=== PATIENT | female | born 1985 | race American Indian/Alaskan Native ===

== ENCOUNTER 2018-11-16 13:10 | Emergency (ER) | payer OTHER ==
[2018-11-16 13:33] VITALS: BP 124/77
--- NOTE | 2018-11-16 13:38 | Event Note ---
ED Screening Note Date of service: 11/16/18 Time: 13:37 ED Screening Note: 33 y/o female comes in for headache that is not getting any better. This initial assessment/diagnostic orders/clinical plan/treatment(s) is/are subject to change based on patients health status, clinical progression and re- assessment by fellow clinical providers in the ED. Further treatment and workup at subsequent clinical providers discretion. Patient/guardian urged not to elope from the ED as their condition may be serious if not clinically assessed and managed. Initial orders include:
--- NOTE | 2018-11-16 14:33 | Emergency Department Report ---
ED Headache HPI - General Chief Complaint: Neck Pain/Injury Stated Complaint: HEAD/NECK/EAR RT PAIN Time Seen by Provider: 11/16/18 14:03 - History of Present Illness Initial Comments: Patient is a 33-year-old female who is complaining of right- sided headache for approximately 2 weeks. He says the headache is off and on. Patient has seen her primary care physician and went to another emergency Department was told that likely tension. Patient states it starts in her yazidism and there is some tight sensation in the right posterior neck as well. 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 Patient states is mild photophobia but she denies any neck stiffness or throat fevers chills nausea vomiting at this time. Allergies/Adverse Reactions: Allergies No Known Allergies Allergy (Unverified 11/16/18 13:11) Home Medications: Ambulatory Orders Ketorolac [Toradol] 10 mg PO Q6H PRN #12 tablet 11/16/18 traMADol [Ultram] 50 mg PO Q6HR PRN #12 tablet 11/16/18 ED Review of Systems ROS: Stated complaint: HEAD/NECK/EAR RT PAIN Other details as noted in HPI Comment: All other systems reviewed and negative ED Past Medical Hx - Past Medical History Previous Medical History?: No - Surgical History Past Surgical History?: No - Social History Smoking Status: Never Smoker Substance Use Type: None - Medications Home Medications: Home Medications Medication Instructions Recorded Confirmed Last Taken Type Ketorolac [Toradol] 10 mg PO Q6H PRN #12 tablet 11/16/18 Unknown Rx traMADol [Ultram] 50 mg PO Q6HR PRN #12 tablet 11/16/18 Unknown Rx ED Physical Exam - General Limitations: No Limitations General appearance: alert, in no apparent distress - Head Head exam: Present: atraumatic, normocephalic - Eye Eye exam: Present: normal appearance - ENT ENT exam: Present: mucous membranes moist, other - Neck Neck exam: Present: normal inspection, tenderness (right neck with no swelling or induration). Absent: lymphadenopathy (no sinus tenderness on palpation) - Respiratory Respiratory exam: Present: normal lung sounds bilaterally. Absent: respiratory distress, wheezes, rales, rhonchi - Cardiovascular Cardiovascular Exam: Present: regular rate, normal rhythm. Absent: systolic murmur, diastolic murmur, rubs, gallop - GI/Abdominal GI/Abdominal exam: Present: soft, normal bowel sounds. Absent: distended, tenderness, guarding, rebound - Extremities Exam Extremities exam: Present: normal inspection - Back Exam Back exam: Present: normal inspection - Neurological Exam Neurological exam: Present: alert, oriented X3 - Psychiatric Psychiatric exam: Present: normal affect, normal mood - Skin Skin exam: Present: warm, dry, intact, normal color. Absent: rash ED Course Vital Signs 11/16/18 13:30 Temperature 97.8 F Pulse Rate 68 Respiratory 18 Rate Blood Pressure 124/77 O2 Sat by Pulse 100 Oximetry ED Medical Decision Making - Medical Decision Making Patient to be referred to neurology. It is possible the patient could be having some tension headache secondary to some neck strain however patient states the headache started before the neck discomfort. Patient's shows no evidence of having any meningeal signs. Patient is neurovascularly intact and has no deficits. Patient discharged home. Critical care attestation.: If time is entered above; I have spent that time in minutes in the direct care of this critically ill patient, excluding procedure time. ED Disposition Clinical Impression: Acute headache Qualifiers: Headache type: unspecified Intractability: not intractable Qualified Code(s): R51 - Headache Disposition: DC-01 TO HOME OR SELFCARE Is pt being admited?: No Does the pt Need Aspirin: No Condition: Stable Referrals: JAYDE BROWN MD [Primary Care Provider] - 3-5 Days MILADIS SEVERINO MD [Referring] - 3-5 Days Time of Disposition: 14:32
== END 2018-11-16 14:37 | disposition home or self-care (01) ==
LOC: ED 13:10
DX: R51 Headache (principal)
CPT/HCPCS: 99282